=== PATIENT | male | born 1985 | race Caucasian/White ===

== ENCOUNTER 2025-05-02 03:51 | Emergency (ER) | payer OTHER ==
[~2025-05-02] VITALS: Ht 182.9 cm; Wt 99.8 kg
[2025-05-02] MEDS ORDERED: TDAP [DIPH/PERTUSSIS/TET] 0.5 ML VIAL IM ONE (03:59)
[2025-05-02] MEDS: TDAP [DIPH/PERTUSSIS/TET] 0.5 ML VIAL IM ONE (04:07)
[2025-05-02 04:29] VITALS: BP 155/88; TEMP 98.6; O2SAT 99
== END 2025-05-02 04:56 | disposition left against medical advice (07) ==
LOC: ER 03:55
DX: S01.91XA Laceration without foreign body of unspecified part of head, initial encounter (principal); R51.9 Headache, unspecified; Z60.2 Problems related to living alone; Y08.89XA Assault by other specified means, initial encounter; Y93.01 Activity, walking, marching and hiking; Y92.410 Unspecified street and highway as the place of occurrence of the external cause; Y99.8 Other external cause status
CPT/HCPCS: 70450-TC; 71046; 90715

== ENCOUNTER 2025-05-02 21:33 | Emergency (ER) | payer OTHER | END 2025-05-02 22:58 | disposition left against medical advice (07) | LOC: ER 21:43 | DX: S09.90XA Unspecified injury of head, initial encounter (principal); Z53.21 Procedure and treatment not carried out due to patient leaving prior to being seen by health care provider; X58.XXXA Exposure to other specified factors, initial encounter; Y93.89 Activity, other specified; Y92.89 Other specified places as the place of occurrence of the external cause; Y99.8 Other external cause status ==

== ENCOUNTER 2025-05-08 00:40 | Emergency (ER) | payer OTHER | END 2025-05-08 02:30 | disposition left against medical advice (07) | LOC: ER 00:44 | DX: T14.8XXA Other injury of unspecified body region, initial encounter (principal); M54.9 Dorsalgia, unspecified; Z53.21 Procedure and treatment not carried out due to patient leaving prior to being seen by health care provider; W34.00XA Accidental discharge from unspecified firearms or gun, initial encounter; Y93.89 Activity, other specified; Y92.89 Other specified places as the place of occurrence of the external cause; Y99.8 Other external cause status ==